=== PATIENT | male | born 1965 | race Hispanic/Latino ===

== ENCOUNTER 2021-05-14 16:57 | Emergency (ER) | payer MEDICARE, MEDICAID ==
--- NOTE | 2021-05-14 19:50 | Emergency Department Report ---
Blank Doc - Documentation Documentation: 56-year-old male that presents to the ER for alcohol, fentanyl, methamphetamine, and heroin detox. Last alcoholic and drug abuse was earlier this afternoon. Denies any other symptoms or complaints. Denies any SI/HI. 1- This is a initial triage assessment/medical screening only. Full assessment and work-up will be completed once the patient is in proper hospital gown, ED bed and in a private room setting. This initial assessment/diagnostic orders/clinical plan/ treatment(s) is/are subject to change based on pt's health status, clinical progression and re-assessment by fellow clinical providers in the ED. Further treatment and workup at subsequent clinical providers discretion. Patient/guardians urged not to elope from ED as their condition may be serious if not clinically assessed and managed. 2-labs 3-UA
[2021-05-14 20:24] LABS: Basophils # (Auto) 0.1 K/mm3 (0.0-0.1); Basophils % (Auto) 1.2 % (0.0-1.8); Eosinophils % (Auto) 0.3 % (0.0-4.3); Hematocrit 39.8 % (35.5-45.6); Hemoglobin 13.4 gm/dl (11.8-15.2); Lymphocytes # (Auto) 0.9 K/mm3 (1.2-5.4); Lymphocytes % (Auto) 20.5 % (13.4-35.0); Mean Corpuscular HGB Conc 34 % (32-34); Mean Corpuscular Volume 81 fl (84-94); Monocytes # (Auto) 0.5 K/mm3 (0.0-0.8); Monocytes % (Auto) 12.1 % (0.0-7.3); Platelet Count 322 K/mm3 (140-440); Red Blood Count 4.91 M/mm3 (3.65-5.03)
[2021-05-14 20:36] LABS: Bilirubin,Urine NEG (Negative); Blood,Urine NEG (Negative); Color,Urine Colorless (Yellow); Protein,Urine <15 mg/dL mg/dL (Negative); Urobilinogen,Urine < 2.0 mg/dL (<2.0)
[2021-05-14 20:39] LABS: Alanine Aminotransferase 250 units/L (7-56); Albumin 3.5 g/dL (3.9-5); Blood Urea Nitrogen 8 mg/dL (9-20); Calcium 9.3 mg/dL (8.4-10.2); Hemolysis Index 4
[2021-05-14 20:43] LABS: Amphetamine Screen,Urine Negative; Benzodiazepines Screen,Urine Negative; Cannabinoid Screen,Urine Negative; Cocaine Screen,Urine Negative; Methadone Screen,Urine Negative; Opiate Screen,Urine Negative
[2021-05-14 20:59] LABS: BUN/Creatinine Ratio 13
[2021-05-15] MEDS ORDERED: cloNIDine 0.1 MG TAB PO ONE (05:43)
[2021-05-15 07:46] VITALS: BP 179/104
--- NOTE | 2021-05-15 07:48 | Emergency Department Report ---
ED Psych HPI - General Chief Complaint: Psych Stated Complaint: DETOX MEDICAL CLEARANCE Time Seen by Provider: 05/14/21 19:29 Source: patient Mode of arrival: Ambulatory - History of Present Illness Initial Comments: HPI: I need clearance to go to [facility]. This 56-year-old male with history of polysubstance abuse and hypertension who presents to the emergency room for medical clearance. He admits to use of alcohol for now methamphetamine and heroin. He feels anxious. Otherwise no acute distress. Denies suicidal homicidal ideation. MD Complaint: other Associated Psychiatric Symptoms: other (Substance abuse anxiety) History of same: Yes Quality: constant Improves With: none Worsens With: none Context: recent alcohol abuse, recent drug abuse, not taking psychiatric Treatments Prior to Arrival: none - Related Data Allergies Allergy/AdvReac Type Severity Reaction Status Date / Time No Known Allergies Allergy Verified 05/14/21 19:36 ED Review of Systems ROS: Stated complaint: DETOX MEDICAL CLEARANCE Other details as noted in HPI Comment: All other systems reviewed and negative Constitutional: denies: chills, fever, malaise Respiratory: denies: cough, shortness of breath Cardiovascular: denies: chest pain Gastrointestinal: denies: abdominal pain, nausea, vomiting ED Past Medical Hx - Past Medical History Previous Medical History?: Yes Hx Hypertension: Yes - Surgical History Past Surgical History?: No - Social History Smoking Status: Current Every Day Smoker Substance Use Type: Alcohol, Heroin, Methamphetamines ED Physical Exam - General Limitations: No Limitations General appearance: alert, in no apparent distress - Head Head exam: Present: atraumatic, normocephalic - Eye Eye exam: Present: normal appearance - ENT ENT exam: Present: mucous membranes moist - Neck Neck exam: Present: normal inspection, full ROM - Respiratory Respiratory exam: Present: normal lung sounds bilaterally. Absent: respiratory distress, wheezes, rales, rhonchi - Cardiovascular Cardiovascular Exam: Present: regular rate, normal rhythm, normal heart sounds. Absent: systolic murmur, diastolic murmur, rubs, gallop - GI/Abdominal GI/Abdominal exam: Present: soft, normal bowel sounds. Absent: distended, tenderness, guarding, rebound - Rectal Rectal exam: Present: deferred - Extremities Exam Extremities exam: Present: normal inspection - Neurological Exam Neurological exam: Present: alert, oriented X3 - Psychiatric Psychiatric exam: Present: normal affect, normal mood - Skin Skin exam: Present: warm, dry, intact, normal color. Absent: rash ED Course Vital Signs 05/14/21 05/15/21 05/15/21 19:30 05:37 05:39 Temperature 97.6 F Pulse Rate 79 78 77 Respiratory 18 17 18 Rate Blood Pressure 195/104 Blood Pressure 193/98 195/104 [Left] O2 Sat by Pulse 97 98 98 Oximetry 05/15/21 05/15/21 05:49 07:45 Temperature Pulse Rate 77 Respiratory Rate Blood Pressure 194/107 Blood Pressure 179/104 [Left] O2 Sat by Pulse Oximetry ED Medical Decision Making - Lab Data Result diagrams: 05/14/21 19:52 05/14/21 19:52 Laboratory Results - last 24 hr 05/14/21 05/14/21 05/14/21 19:52 19:52 19:52 WBC 4.5 RBC 4.91 Hgb 13.4 Hct 39.8 MCV 81 L MCH 27 L MCHC 34 RDW 18.0 H Plt Count 322 Lymph % (Auto) 20.5 Traverse % (Auto) 12.1 H Eos % (Auto) 0.3 Baso % (Auto) 1.2 Lymph # (Auto) 0.9 L Traverse # (Auto) 0.5 Eos # (Auto) 0.0 Baso # (Auto) 0.1 Seg Neutrophils % 65.9 Seg Neutrophils # 2.9 Sodium 134 L Potassium 3.7 Chloride 99.8 Carbon Dioxide 26 Anion Gap 12 BUN 8 L Creatinine 0.6 L Estimated GFR > 60 BUN/Creatinine Ratio 13 Glucose 108 H Calcium 9.3 Total Bilirubin 0.90 AST 264 H ALT 250 H Alkaline Phosphatase 160 H Total Protein 7.7 Albumin 3.5 L Albumin/Globulin Ratio 0.8 Urine Color Urine Turbidity Urine pH Ur Specific Clyde Urine Protein Urine Glucose (UA) Urine Ketones Urine Blood Urine Nitrite Urine Bilirubin Urine Urobilinogen Ur Leukocyte Esterase Urine WBC (Auto) Urine RBC (Auto) Salicylates < 0.3 L Urine Opiates Screen Urine Methadone Screen Acetaminophen Ur Barbiturates Screen Ur Phencyclidine Scrn Ur Amphetamines Screen U Benzodiazepines Scrn Urine Cocaine Screen U Marijuana (THC) Screen Drugs of Abuse Note Plasma/Serum Alcohol 05/14/21 05/14/21 05/14/21 19:52 19:52 Unknown WBC RBC Hgb Hct MCV MCH MCHC RDW Plt Count Lymph % (Auto) Traverse % (Auto) Eos % (Auto) Baso % (Auto) Lymph # (Auto) Traverse # (Auto) Eos # (Auto) Baso # (Auto) Seg Neutrophils % Seg Neutrophils # Sodium Potassium Chloride Carbon Dioxide Anion Gap BUN Creatinine Estimated GFR BUN/Creatinine Ratio Glucose Calcium Total Bilirubin AST ALT Alkaline Phosphatase Total Protein Albumin Albumin/Globulin Ratio Urine Color Colorless Urine Turbidity Clear Urine pH 8.0 H Ur Specific Clyde 1.002 L Urine Protein <15 mg/dl Urine Glucose (UA) Neg Urine Ketones Neg Urine Blood Neg Urine Nitrite Neg Urine Bilirubin Neg Urine Urobilinogen < 2.0 Ur Leukocyte Esterase Neg Urine WBC (Auto) 1.0 Urine RBC (Auto) 1.0 Salicylates Urine Opiates Screen Urine Methadone Screen Acetaminophen 5.0 L Ur Barbiturates Screen Ur Phencyclidine Scrn Ur Amphetamines Screen U Benzodiazepines Scrn Urine Cocaine Screen U Marijuana (THC) Screen Drugs of Abuse Note Plasma/Serum Alcohol < 0.01 05/14/21 Unknown WBC RBC Hgb Hct MCV MCH MCHC RDW Plt Count Lymph % (Auto) Traverse % (Auto) Eos % (Auto) Baso % (Auto) Lymph # (Auto) Traverse # (Auto) Eos # (Auto) Baso # (Auto) Seg Neutrophils % Seg Neutrophils # Sodium Potassium Chloride Carbon Dioxide Anion Gap BUN Creatinine Estimated GFR BUN/Creatinine Ratio Glucose Calcium Total Bilirubin AST ALT Alkaline Phosphatase Total Protein Albumin Albumin/Globulin Ratio Urine Color Urine Turbidity Urine pH Ur Specific [place] Urine Protein Urine Glucose (UA) Urine Ketones Urine Blood Urine Nitrite Urine Bilirubin Urine Urobilinogen Ur Leukocyte Esterase Urine WBC (Auto) Urine RBC (Auto) Salicylates Urine Opiates Screen Negative Urine Methadone Screen Negative Acetaminophen Ur Barbiturates Screen Negative Ur Phencyclidine Scrn Negative Ur Amphetamines Screen Negative U Benzodiazepines Scrn Negative Urine Cocaine Screen Negative U Marijuana (THC) Screen Negative Drugs of Abuse Note Disclamer Plasma/Serum Alcohol - Medical Decision Making Patient is medically clear for psychiatric care. CBC chemistry unremarkable ex ception of elevated liver enzymes likely related to alcoholic liver disease. Urinalysis without infection. Patient is medically clear for psychiatric care. Asymptomatic hypertensive urgency patient admits to noncompliance with his home medication. Critical care attestation.: If time is entered above; I have spent that time in minutes in the direct care of this critically ill patient, excluding procedure time. ED Disposition Clinical Impression: Medical clearance for psychiatric admission, Hypertensive urgency Disposition: HOME / SELF CARE / HOMELESS Is pt being admited?: No Does the pt Need Aspirin: No Condition: Stable Additional Instructions: Your lab tests are normal. You have been medically cleared in the emergency room.
== END 2021-05-15 07:55 | disposition home or self-care (01) ==
LOC: ED 16:57
DX: I16.0 Hypertensive urgency (principal); Z00.8 Encounter for other general examination; F17.200 Nicotine dependence, unspecified, uncomplicated; F10.20 Alcohol dependence, uncomplicated; F15.90 Other stimulant use, unspecified, uncomplicated; I10 Essential (primary) hypertension
CPT/HCPCS: 36415; 80053; 80307; 80320; 81001; 85025; 99283; G0480

== ENCOUNTER 2021-06-07 10:15 | Emergency (ER) | payer MEDICARE ==
[2021-06-07] MEDS: LORazepam 1 MG TAB PO ONE ×2 (11:14→11:55)
--- NOTE | 2021-06-07 11:19 | Event Note ---
Event Note: This patient is medically stable and appropriate for treatment in a psychiatric setting, ie. their behavioral disturbance is unlikely to be due to a medical condition or physical trauma, and their medical/surgical treatment for any concomitant conditions is within the capabilities of the receiving facility.
--- NOTE | 2021-06-07 11:28 | Emergency Department Report ---
ED Psych HPI - General Chief Complaint: Medical Clearance Stated Complaint: MEDICAL CLEARENCE/ANXIETY Time Seen by Provider: 06/07/21 10:27 Source: patient Mode of arrival: Ambulatory - History of Present Illness Initial Comments: The patient was evaluated in the emergency department for symptoms described in the history of present illness. He/she was evaluated in the context of the global COVID-19 pandemic, which necessitated consideration that the patient might be at risk for infection with the virus that causes COVID-19. Institutional protocols and algorithms that pertain to the evaluation of patients at risk for COVID-19 are in a state of rapid change based on inform ation released by regulatory bodies including the CDC and federal and state organizations. These policies and algorithms were followed during the patient's care in the emergency department. Please note that these policies, procedures and recommendations changed on a rapid basis. 56-year-old male presents to the emergency room complaining of anxiety. Patient states he was at [facility] and group therapy and he started to break out in sweats heart racing and getting tingling in his fingers. 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 Patient states that he suffers from social anxiety and all of his meetings at [facility] or group therapy. Patient states when he has anxiety he tends to start sweating all over. Patient states he is in [facility] for drug rehab. He reported to me that he was alcoholic and when he was drinking in dad and nurse and he did not sweat. Patient says that it did not spin alcohol free for 8 years and started doing drugs and that serves as the purpose of getting there nerves. Patient states now he is trying to get into recovery. Patient reports that he was in anger on and is sent him to [facility]. Patient denies any suicidal homicidal ideation. -: This morning History of same: Yes Worsens With: therapy Associated Symptoms: denies: confusion, headache, shortness of breath, nausea, vomiting, syncope, insomnia - Related Data Previous Rx's Medication Instructions Recorded Last Taken Type LORazepam [Ativan] 1 mg PO BID #4 tab 06/07/21 Unknown Rx Allergies Allergy/AdvReac Type Severity Reaction Status Date / Time No Known Allergies Allergy Verified 05/14/21 19:36 ED Review of Systems ROS: Stated complaint: MEDICAL CLEARENCE/ANXIETY Other details as noted in HPI Comment: All other systems reviewed and negative ED Past Medical Hx - Past Medical History Hx Hypertension: Yes - Social History Smoking Status: Current Every Day Smoker Substance Use Type: Alcohol, Heroin, Methamphetamines - Medications Home Medications: Home Medications Medication Instructions Recorded Confirmed Last Taken Type LORazepam [Ativan] 1 mg PO BID #4 tab 06/07/21 Unknown Rx ED Physical Exam - General Limitations: No Limitations General appearance: alert, in no apparent distress, anxious, other (Diaphoretic, face is red and forehead is sweating) - Head Head exam: Present: atraumatic, normocephalic - Eye Eye exam: Present: normal appearance - ENT ENT exam: Present: mucous membranes moist, normal external ear exam - Neck Neck exam: Present: normal inspection, full ROM - Respiratory Respiratory exam: Present: normal lung sounds bilaterally. Absent: accessory muscle use - Cardiovascular Cardiovascular Exam: Present: regular rate - Back Exam Back exam: Present: normal inspection, full ROM - Neurological Exam Neurological exam: Present: alert, oriented X3, normal gait - Psychiatric Psychiatric exam: Present: normal mood, anxious - Skin Skin exam: Present: warm, diaphoretic, erythema ED Course Vital Signs 06/07/21 06/07/21 10:18 11:38 Temperature 98.1 F 98.1 F Pulse Rate 93 H 98 H Respiratory 22 12 Rate Blood Pressure 158/91 156/95 Blood Pressure 156/95 [Right] O2 Sat by Pulse 99 99 Oximetry - Reevaluation(s) Reevaluation #1: 06/07/21 13:49 Patient reports he feels much better. States that his body is starting to dry off. He was sleeping comfortably in the chair prior to talking to him. ED Medical Decision Making - Lab Data Result diagrams: 06/07/21 11:07 06/07/21 11:07 - Medical Decision Making 56-year-old male presents to the emergency room complaining of anxiety. Patient states he was at [facility] and group therapy and he started to break out in sweats heart racing and getting tingling in his fingers. 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 Patient states that he suffers from social anxiety and all of his meetings at [facility] or group therapy. Patient states when he has anxiety he tends to start sweating all over. Patient states he is in [facility] for drug rehab. He reported to me that he was alcoholic and when he was drinking in dad and nurse and he did not sweat. Patient says that it did not spin alcohol free for 8 years and started doing drugs and that serves as the purpose of getting there nerves. Patient states now he is trying to get into recovery. Patient reports that he was in anger on and is sent him to [facility]. Patient denies any suicidal homicidal ideation. Psych work-up. Ativan was given to patient. Reports he feels much better. Patient has stable labs for him. He denies any pain at this time. Will discharge patient with prescription for Ativan for 2 days and return back to his mental health facility. Critical care attestation.: If time is entered above; I have spent that time in minutes in the direct care of this critically ill patient, excluding procedure time. ED Disposition Clinical Impression: Social anxiety disorder, Medical clearance for psychiatric admission Disposition: 01 HOME / SELF CARE / HOMELESS Is pt being admited?: No Does the pt Need Aspirin: No Condition: Stable Instructions: Social Anxiety Disorder, Adult Additional Instructions: Please take medication as prescribed. Follow-up with psychiatry or mental [facility]. I have listed their information below for your convenience. Patient is medically cleared to return back to mental health. Prescriptions: LORazepam [Ativan] 1 mg PO BID #4 tab Referrals: PRIMARY CARE, [Primary Care Provider] - 3-5 Days [facility] [Outside] - 3-5 Days Time of Disposition: 13:51
[2021-06-07 11:32] LABS: Benzodiazepines Screen,Urine Negative; Cannabinoid Screen,Urine Negative; Cocaine Screen,Urine Negative; Methadone Screen,Urine Negative; Opiate Screen,Urine Negative
[2021-06-07 11:38] LABS: Basophils # (Auto) 0.1 K/mm3 (0.0-0.1); Basophils % (Auto) 2.3 % (0.0-1.8); Eosinophils # (Auto) 0.1 K/mm3 (0.0-0.4); Eosinophils % (Auto) 1.5 % (0.0-4.3); Hematocrit 39.4 % (35.5-45.6); Hemoglobin 14.1 gm/dl (11.8-15.2); Lymphocytes # (Auto) 0.7 K/mm3 (1.2-5.4); Lymphocytes % (Auto) 16.4 % (13.4-35.0); Mean Corpuscular HGB Conc 36 % (32-34); Mean Corpuscular Volume 82 fl (84-94); Monocytes # (Auto) 0.5 K/mm3 (0.0-0.8); Monocytes % (Auto) 10.5 % (0.0-7.3); Platelet Count 333 K/mm3 (140-440); Red Blood Count 4.81 M/mm3 (3.65-5.03); Red Cell Distribution Width 18.3 % (13.2-15.2)
[2021-06-07 12:01] LABS: Alanine Aminotransferase 315 units/L (7-56); Albumin 3.5 g/dL (3.9-5); Blood Urea Nitrogen 6 mg/dL (9-20); Calcium 9.2 mg/dL (8.4-10.2); Hemolysis Index 75
[2021-06-07 12:03] LABS: BUN/Creatinine Ratio 10
[2021-06-07 12:05] LABS: Amphetamine Screen,Urine Positive
[2021-06-07 13:58] VITALS: BP 169/79
== END 2021-06-07 14:00 | disposition home or self-care (01) ==
LOC: ED 10:15
DX: F41.8 Other specified anxiety disorders (principal); Z13.30 Encounter for screening examination for mental health and behavioral disorders, unspecified; I10 Essential (primary) hypertension; F17.290 Nicotine dependence, other tobacco product, uncomplicated
CPT/HCPCS: 36415; 80053; 80307; 80320; 85025; 99284; G0480